=== PATIENT | male | born 1940 | race Caucasian/White ===

== ENCOUNTER 2016-08-20 09:07 | Day surgery (SDC) | payer MEDICARE, OTHER ==
[~2016-08-20 09:07] MED LIST: CHONDR SULF 4%/HYALURONATE 3% 0.5 ML SYRINGE IO ONE; EPINEPHRINE 0.5 MG in BALANCED SALT IRRIG SOLN NO.2 500 ML IO ONE; LIDOCAINE 4% (PRES FREE) 1 ML, BALANCED SALT IRRIG SOLN COMB2 3 ML, EPINEPHRINE 1.25 MG IO ONE; NEO/POLYMYX B SULF/DEXAMETH OP OINT 14 APPLIC/3.5 G TUBE OS ONE; PHENYLEPHRINE HCL 10% 100 GTTS/5 ML BOT SOLN.DROP OS PRN; PROPARACAINE HCL 0.5% 300 GTTS/BOT SOLN.DROP OS ONE; SODIUM CHLORIDE 0.9% 500 ML IV SCH
[2016-08-20] MEDS ORDERED: LACTATED RINGERS 1,000 ML ONE (09:41)
[2016-08-20] MEDS ORDERED: IV START KIT ONE (09:41)
[2016-08-20] MEDS ORDERED: SODIUM CHLORIDE 0.9% 0 ML ONE (09:43)
[2016-08-20] MEDS: CYCLOPENTOLATE HCL 1% 40 GTTS/2 ML BOT SOLN.DROP OS SCH ×3 (10:09→10:17)
[2016-08-20] MEDS: FLURBIPROFEN SODIUM 0.03% 50 GTTS/2.5 ML BOT SOLN.DROP OS SCH ×2 (10:10→10:16)
[2016-08-20] MEDS: PHENYLEPHRINE 2.5% OPHTH 40 GTTS/2 ML BOT SOLN.DROP OS SCH ×2 (10:11→10:17)
[2016-08-20] MEDS ORDERED: POVIDONE-IODINE 5% OPHTH SOLN 600 GTTS/BOT SOLN.DROP ONE (10:32)
[2016-08-20] MEDS ORDERED: MIDAZOLAM HCL 1 MG/ML 2ML VIAL ONE (10:35)
--- NOTE | 2016-08-21 09:21 | OP ---
MAURICIO ROSAS [id number] DATE OF PROCEDURE: 08/20/2016 PREOPERATIVE DIAGNOSIS: Cataract OS. POSTOPERATIVE DIAGNOSIS: Pseudophakia OS. PROCEDURE: PHACOEMULSIFICATION AND POSTERIOR CHAMBER INTRAOCULAR LENS OS. SURGEON: Dr. Lucas Ryan ANESTHESIA: MAC with topical. COMPLICATIONS: None. DESCRIPTION OF PROCEDURE: After informed consent was obtained, the patient was brought back to the operating room and laid in supine position. Cardiac monitors and IV access were obtained by nursing and the patient underwent IV sedation without complication. Once adequate sedation was in place, the patient was prepped and draped in the usual sterile fashion and a lid speculum was placed in the left eye. Attention was directed to the limbus at 6 o'clock where a side port was created using a 15-degree blade. Upon entering the anterior chamber, nonpreserved lidocaine was placed intracamerally, followed by reinflating the anterior chamber with viscoelastic. A clear corneal incision was then created at the 3 o'clock position on the limbus using a grooved blade, followed by a 2.4 mm Keratome blade. Upon entering the anterior chamber, a curvilinear capsulorrhexis was initiated and completed with Utrata forceps. A balanced salt solution (BSS) was used to hydrodissect the cataract and the cataract was removed with the phacoemulsification unit and a phaco-chop technique. The remaining cortical remnants were removed with the irrigation and aspiration unit. The anterior chamber and capsular bag were reinflated with viscoelastic. The intraocular lens was removed from packaging and found to be without defect. This was an SN60WF, 23.0 diopter lens. The lens was put in the injector and was injected into the capsular bag without difficulty. The posterior haptic was rotated into position using a Kuglen hook and the lens was noted to be well-centered in the bag. The remaining viscoelastic was then removed with the irrigation and aspiration unit. A balanced salt solution (BSS) was used to reinflate the anterior chamber. The wounds were inspected and found to be watertight. The lid speculum was removed, Maxitrol ointment was placed in the eye and the patient had a shield placed. The patient left the operating room in good condition. There were no complications.
== END 2016-08-20 11:55 | disposition home or self-care (01) ==
LOC: SDC 09:07
PROVIDERS: ATTEND Ophthalmology
PROC: 08RK3JZ Replacement of Left Lens with Synthetic Substitute, Percutaneous Approach (ICD-10-PCS; principal; 2016-08-20)
DX: H26.9 Unspecified cataract (principal); I10 Essential (primary) hypertension; E78.5 Hyperlipidemia, unspecified; I38 Endocarditis, valve unspecified; K21.9 Gastro-esophageal reflux disease without esophagitis; Z85.038 Personal history of other malignant neoplasm of large intestine
CPT/HCPCS: 66984; J2250; J7120; J0171 ×2; V2630

== ENCOUNTER 2016-09-24 05:59 | Day surgery (SDC) | payer MEDICARE, OTHER ==
[~2016-09-24 05:59] MED LIST changes: -CHONDR SULF 4%/HYALURONATE 3% 0.5 ML SYRINGE IO ONE; -EPINEPHRINE 0.5 MG in BALANCED SALT IRRIG SOLN NO.2 500 ML IO ONE; +IV START KIT ONE; -LIDOCAINE 4% (PRES FREE) 1 ML, BALANCED SALT IRRIG SOLN COMB2 3 ML, EPINEPHRINE 1.25 MG IO ONE; -NEO/POLYMYX B SULF/DEXAMETH OP OINT 14 APPLIC/3.5 G TUBE OS ONE; -PHENYLEPHRINE HCL 10% 100 GTTS/5 ML BOT SOLN.DROP OS PRN; -PROPARACAINE HCL 0.5% 300 GTTS/BOT SOLN.DROP OS ONE; -SODIUM CHLORIDE 0.9% 500 ML IV SCH; +SODIUM CHLORIDE 0.9% 500 ML ONE
[2016-09-24] MEDS ORDERED: EPINEPHRINE 0.5 MG in BALANCED SALT IRRIG SOLN NO.2 500 ML IO ONE (06:00)
[2016-09-24] MEDS ORDERED: SODIUM CHLORIDE 0.9% 500 ML IV SCH (06:00)
[2016-09-24] MEDS ORDERED: CHONDR SULF 4%/HYALURONATE 3% 0.5 ML SYRINGE IO ONE (06:00)
[2016-09-24] MEDS ORDERED: LIDOCAINE 4% (PRES FREE) 1 ML, BALANCED SALT IRRIG SOLN COMB2 3 ML, EPINEPHRINE 1.25 MG IO ONE ×3 (06:00)
[2016-09-24] MEDS ORDERED: PHENYLEPHRINE HCL 10% 100 GTTS/5 ML BOT SOLN.DROP OD PRN (06:00)
[2016-09-24] MEDS ORDERED: NEO/POLYMYX B SULF/DEXAMETH OP OINT 14 APPLIC/3.5 G TUBE OD ONE (06:00)
[2016-09-24] MEDS ORDERED: PROPARACAINE HCL 0.5% 300 GTTS/BOT SOLN.DROP OD ONE (06:00)
[2016-09-24] MEDS: PHENYLEPHRINE 2.5% OPHTH 40 GTTS/2 ML BOT SOLN.DROP OD SCH ×2 (06:15→06:23)
[2016-09-24] MEDS: FLURBIPROFEN SODIUM 0.03% 50 GTTS/2.5 ML BOT SOLN.DROP OD SCH ×2 (06:16→06:23)
[2016-09-24] MEDS: CYCLOPENTOLATE HCL 1% 40 GTTS/2 ML BOT SOLN.DROP OD SCH ×2 (06:16→06:23)
[2016-09-24] MEDS ORDERED: POVIDONE-IODINE 5% OPHTH SOLN 600 GTTS/BOT SOLN.DROP ONE (06:17)
[2016-09-24] MEDS ORDERED: MIDAZOLAM HCL 1 MG/ML 2ML VIAL ONE (06:40)
--- NOTE | 2016-09-25 08:10 | OP ---
Danii Winston [id number] DATE OF PROCEDURE: 09/24/2016 PREOPERATIVE DIAGNOSIS: Cataract OD. POSTOPERATIVE DIAGNOSIS: Pseudophakia OD. PROCEDURE: PHACOEMULSIFICATION AND POSTERIOR CHAMBER INTRAOCULAR LENS OD. ANESTHESIA: Monitored anesthesia care (MAC) with topical. SURGEON: Lucas Ryan M.D. COMPLICATIONS: None. DESCRIPTION OF PROCEDURE: After informed consent was obtained the patient was brought back to the operating room and laid in the supine position. Cardiac monitors and intravenous access were obtained by nursing and the patient underwent intravenous sedation without complication. Once adequate sedation was in place the patient was prepped and draped in the usual sterile fashion and a lid speculum was placed in the right eye. Attention was directed to the limbus at six o'clock where a side port was created using a 15 degree blade. Upon entering the anterior chamber non-preserved lidocaine was placed anterior chamber followed by reinflating the anterior chamber with Viscoelastic. A clear corneal incision was created at the limbus at nine o'clock using a groove blade followed by a 2.4 mm keratome blade. Upon entering the anterior chamber a curvilinear capsulorrhexis was initiated and completed with Utrata forceps. Balanced salt solution (BSS) was used to hydrodissect the cataract and the cataract was removed with the phacoemulsification unit in a phaco-chop technique. The remaining cortical remnants were removed with the irrigation and aspiration unit. The capsular bag and anterior chamber were reinflated with Viscoelastic and the intraocular lens SN60WF, 22.5 diopter lens was removed from packaging and found to be without defect. This was placed into the injector injected into the capsular bag without difficulty. The posterior haptic was rotated into position using a Kuglen hook. The lens was noted to be well centered in the bag. The remaining viscoelastic was then removed with the irrigation and aspiration unit. Balanced salt solution (BSS) was used to reinflate the anterior chamber and the wounds were inspected and found to be watertight. Maxitrol ointment was placed in the eye followed by removal of the lid speculum and placement of a shield. The patient left the operating room in good condition and there were no complications. JOB: [id number]
== END 2016-09-24 08:25 | disposition home or self-care (01) ==
LOC: SDC 05:59
PROVIDERS: ATTEND Ophthalmology
PROC: 08RJ3JZ Replacement of Right Lens with Synthetic Substitute, Percutaneous Approach (ICD-10-PCS; principal; 2016-09-24)
DX: H25.11 Age-related nuclear cataract, right eye (principal); I10 Essential (primary) hypertension; E78.5 Hyperlipidemia, unspecified; K21.9 Gastro-esophageal reflux disease without esophagitis; I38 Endocarditis, valve unspecified; Z79.899 Other long term (current) drug therapy